=== PATIENT | male | born 1975 | race Caucasian/White ===

== ENCOUNTER 2020-03-18 12:21 | Emergency (ER) | payer OTHER, SELFPAY ==
[2020-03-18 12:23] VITALS: BP 109/68; PULSE 80; RESP 18; TEMP 35.9; O2SAT 100; BMI 20.9
--- NOTE | 2020-03-18 12:53 | EKG12_ITS ---
Test Reason : Blood Pressure : / mmHG Vent. Rate : 064 BPM Atrial Rate : 064 BPM P-R Int : 128 ms QRS Dur : 102 ms QT Int : 386 ms P-R-T Axes : 027 058 047 degrees QTc Int : 398 ms Normal sinus rhythm Normal ECG Confirmed by CHINTAN BAKER, EPIFANIO ([id number]), editor continuity and script COOPER SALINAS ([id number]) on 03/21/2020 1:27:41 PM Referred By: JOSE MARIA Confirmed By:EPIFANIO WOODSON MD
--- NOTE | 2020-03-18 13:01 | NURSING ---
NO OLD EKGS
--- NOTE | 2020-03-18 13:17 | CT_ITS ---
STUDY: CT BRAIN WITHOUT CONTRAST REASON FOR EXAM: Male, 45 years old. DIZZINESS WHILE SITTING. VISUAL CHANGES RADIATION DOSAGE (If Supplied By Facility): CTDIvol = ( 44.99 ) mGy, DLP = ( 762.36 ) mGycm TECHNIQUE: Transaxial CT imaging of the brain was performed without administration of intravenous contrast material. Individualized dose optimization techniques were used for this CT. COMPARISON: No relevant priors. FINDINGS: Normal soft tissue structures. Normal calvarium. Normal size ventricles and extra-axial spaces for the patient''s age. Normal white matter tracts of the cerebral hemispheres. Normal basal ganglia and thalami. Normal brainstem. Normal cerebellum. There is no intracranial hemorrhage. There are no findings of an acute ischemic infarction. Normal visualized paranasal sinuses. CT/Brain/Head without Contrast IMPRESSION: Normal unenhanced CT scan of the brain. Electronically Signed: Ken Vincent, at 14:06 EDT , Service support ,
--- NOTE | 2020-03-18 13:21 | ED.VIS.GEN ---
History of Present Illness Informant: Patient Onset: Days - 4 days Context: Gradual Onset Timing: Intermittent Quality: Lashes of lightflashes of light Location: left eye Current Severity: Mild Maximum Severity: Severe Worsened by: nothing Relieved by: nothing Associated Symptoms: dizziness Narrative: 45-year-old male with a history of migraines presents to the emergency department with dizziness and some seeing flashes of light in his left eye of his vision. He states that he normally gets auras preceding his migraines and he did stop all caffeine 4 days ago when he normally had 3 to 5 cups of coffee per day which he states he thinks this could be worsening migraines from that but he is very nervous because of the worsening of his symptoms and he comes to the emergency department. Does have a history of anxiety. He is a mild headache. He does not feel off balance he denies numbness tingling or weakness difficulty speaking or walking facial droop vomiting or diarrhea. Prior similar symptoms: Yes Recent Illness/Hospitalization: No <Zan Connell - Last Filed: 03/18/20 14:33> <Prabha Arthur - Last Filed: 03/29/20 23:53> Chief Complaint: Dizziness Past Medical History Prior records reviewed: Yes Past Medical History: - - Anxiety, GERD, migraines, hypertension, testicular cancer Surgical History: - - Bilateral orchiectomy 2004 <Zan Connell - Last Filed: 03/18/20 14:33> <Prabha Arthur - Last Filed: 03/29/20 23:53> - Allergies and Home Meds Allergies/Adverse Reactions: Allergies No Known Allergies Allergy (Verified 03/18/20 12:25) Primary Care Physician: Care Physician,No Primary [Primary Care Provider] - Review of Systems All systems negative except as indicated General: Denies: Chills, Fever, Malaise, Subjective, Sweats Eyes: Reports: Visual changes - left, Diplopia. Denies: Visual changes - right, Blurred vision - left, Blurred vision - right ENT: Denies: Bilateral ear pain, Left ear pain, Right ear pain, Rhinorrhea, Sore throat Cardiovascular: Denies: Chest pain, Palpitations Respiratory: Denies: Dyspnea, Cough, Dyspnea on exertion Gastrointestinal: Denies: Abdominal pain, Nausea, Vomiting, Diarrhea, Melena, Hematochezia Genitourinary: Denies: Dysuria, Hematuria, Frequency Musculoskeletal: Denies: Back pain, Extremity Pain Skin: Denies: Rash, Wounds Neurological: Reports: Headache. Denies: Weakness, Numbness Psych: Reports: Anxiety. Denies: Depression, Suicidal thoughts, Suicidal ideations <SofíaoliviaZan - Last Filed: 03/18/20 14:33> Physical Exam Vital Signs/Narrative: Vital Signs Temp Pulse Resp BP Pulse Ox 03/18/20 12:23 96.7 F L 80 18 109/68 100 Inital Vital Signs reviewed: Yes General: Well nourished, Well developed, No Acute Distress Head: Normocephalic, Atraumatic Eyes: Perrl, EOMI ENT: Moist mucous membranes, No rhinorrhea Neck: Supple, Nontender Cardiovascular: Regular rate, Regular rhythm, No murmurs Respiratory: No distress, CTA bilaterally, Chest nontender Abdomen: Soft, Nontender, Nondistended, Normal bowel sounds Back: Nontender, Normal Inspection Extremities: Nontender, No edema Skin: Normal color, No rash Neurological: Alert, Oriented x3, Cranial nerves II-XII grossly intact, Normal Strength, Normal Sensation Psychological: Normal affect, Normal Mood <SofíaoliviaJohnZan - Last Filed: 03/18/20 14:33> Diagnostic/Tx/Re-eval Impressions Brain CT 03/18/20 13:17 IMPRESSION: Normal unenhanced CT scan of the brain. Electronically Signed: Ken Vincent, at 14:06 EDT , Service support , 03/18/20 13:17 Brain/Head without Contrast [CT] Stat Laboratory Results 03/18/20 03/18/20 13:35 13:35 WBC 7.6 RBC 4.62 Hgb 14.6 Hct 44.2 MCV 95.7 H MCH 31.6 MCHC 33.0 RDW Std Deviation 43.8 RDW Coeff of Dahlia 12.3 Plt Count 190 MPV 11.8 Immature Gran % (Auto) 0.300 Neut % (Auto) 78.8 H Lymph % (Auto) 11.5 L Calloway % (Auto) 6.8 Eos % (Auto) 1.7 Baso % (Auto) 0.9 Absolute Neuts (auto) 6.0 Absolute Lymphs (auto) 0.87 Nucleated RBC % 0 Sodium 139 Potassium 4.1 Chloride 106 Carbon Dioxide 29.0 Anion Gap 4 L BUN 31 H Creatinine 1.47 H Estim Creat Clear Calc 62.36 Est GFR (MDRD) Af Amer 67 Est GFR (MDRD) Non-Af 56 L BUN/Creatinine Ratio 21.1 H Glucose 135 H Calcium 8.9 - Medical Decision Making On exam the patient has a nonfocal neurological exam. He is complaining of symptoms that are consistent with his previous migraine where he gets preceding aura with migraines. He did discontinue all caffeine when he drank a significant amount of coffee anywhere from 3 to 5 cups of coffee per day. Symptoms coincide to when he did this [address] brain was unremarkable. Labs are unremarkable as well. Creatinine is at baseline. Repeat exam neurological exam remains nonfocal patient well-appearing patient will be discharged home he states he has medicines use at home for migraines he will return for worsening symptoms otherwise follow-up as directed. <Zan Connell - Last Filed: 03/18/20 14:33> - Medical Decision Making Patient evaluated independently and in conjunction with physician assistant surveyor. Agree with note above unless documented otherwise. <Prabha Arthur - Last Filed: 03/29/20 23:53> ED Disposition <Zan Connell - Last Filed: 03/18/20 14:33> <Prabha Arthur - Last Filed: 03/29/20 23:53> - Plan for ED Patient: Disposition: Home or Assisted Living Diagnosis: Migraine headache with aura, Anxiety Instructions: ED, Migraine (Classical) Referrals: Care Physician,No Primary [Primary Care Provider] -
[2020-03-18 13:57] LABS: Absolute Lymphocyte Count 0.87 X10^3/uL (0.83-4.51); Basophil# 0.07 X10^3/uL; Basophil% 0.9 % (0-1); Eosinophil# 0.13 X10^3/uL; Eosinophils% 1.7 % (0-5); Hematocrit 44.2 % (40-54); Hemoglobin 14.6 g/dL (13.0-16.5); Lymphocyte # 0.87 X10^3/ul (4.0); Lymphocyte % 11.5 % (19-41); Mean Corpuscular Hgb 31.6 pg (27.0-32.0); Mean Corpuscular Volume 95.7 fL (80-94); Mean Platelet Vol. 11.8 fl (6.2-12.0); Monocyte# 0.51 X10^3/uL; Monocyte% 6.8 % (0-10); NRBC Flagged by Analyzer 0 % (0-5); Neutrophil # 5.95 X10^3/uL (2.7-7.7); Neutrophil % 78.8 % (47-70); Platelet Count 190 K/mm3 (150-450); RBC Distribution Width CV 12.3 % (11.6-14.6); RBC Distribution Width SD 43.8 fl (35.1-43.9); Red Blood Count 4.62 M/mm3 (4.6-6.2); White Blood Count 7.6 K/mm3 (4.4-11.0)
[2020-03-18 14:03] LABS: Anion Gap 4 (5-15); BUN 31 mg/dL (7-18); BUN/Creat Ratio 21.1 RATIO (10-20); Calcium,Total 8.9 mg/dL (8.5-10.1); Chloride 106 mmol/L (98-107); Creatinine, Serum 1.47 mg/dL (0.70-1.30); EST Glomerular Filtration Rate 56 mL/min (>60); Est Glom Filt Rate - Afr Amer 67 mL/min (>60); Estimated Creatinine Clearance 62.36 ml/min; Glucose 135 mg/dL (74-106); Potassium 4.1 mmol/L (3.5-5.1); Sodium Level 139 mmol/L (136-145)
[2020-03-18 14:57] VITALS: RESP 18
== END 2020-03-18 14:57 | disposition home or self-care (01) ==
LOC: ED 14:48
PROVIDERS: Emergency Provider Physician Assistant Medical
DX: G43.109 Migraine with aura, not intractable, without status migrainosus (principal); F41.9 Anxiety disorder, unspecified
CPT/HCPCS: 70450; 80048; 85025; 93005; 99282